=== PATIENT | female | born 1970 | race Caucasian/White ===

== ENCOUNTER 2016-04-23 14:19 | Outpatient (CLI) | payer BC, OTHER ==
[~2016-04-23] VITALS: Ht 162.6 cm; Wt 81.6 kg
[2016-04-23] MEDS ORDERED: VITA1CAP PO (14:39)
[2016-04-23] MEDS ORDERED: L.AC1CAP6 PO (14:39)
[2016-04-23] MEDS ORDERED: CALC-140 PO (14:39)
[2016-04-23] MEDS ORDERED: PSEU30TA35 PO (14:39)
[2016-04-23] MEDS ORDERED: BUDE10.2 IH (14:39)
[2016-04-23] MEDS ORDERED: GLUC-160 PO (14:39)
[2016-04-23] MEDS ORDERED: PANT40SU PO (14:39)
[2016-04-23] MEDS ORDERED: CELE50CA PO (14:39)
[2016-04-23] MEDS ORDERED: DOXY100C2 PO (14:39)
[2016-04-23 14:44] VITALS: BP 134/88
[2016-04-23 15:33] LABS: BASOPHILS % (AUTO) 0 % (0-10); EOSINOPHILS # (AUTO) 0.1 10^3/uL (0.0-0.3); EOSINOPHILS % (AUTO) 0 % (0-10); LYMPHOCYTES # (AUTO) 2.9 X 10^3 (1.0-4.0); LYMPHOCYTES % (AUTO) 21 % (12-44); MEAN CORPUSCULAR HEMOGLOBIN 26 PG (25-34); MEAN CORPUSCULAR HGB CONC 33 G/DL (32-36); MEAN CORPUSCULAR VOLUME 80 FL (80-99); MEAN PLATELET VOLUME 11.1 FL (7.4-10.4); MONOCYTES # (AUTO) 1.2 X 10^3 (0.0-1.0); MONOCYTES % (AUTO) 9 % (0-12); NEUTROPHILS # (AUTO) 9.2 X 10^3 (1.8-7.8); NEUTROPHILS % (AUTO) 69 % (42-75); PLATELET COUNT 345 10^3/uL (130-400); RED BLOOD COUNT 5.14 10^6/uL (4.35-5.85); RED CELL DISTRIBUTION WIDTH 16.3 % (10.0-14.5); WHITE BLOOD COUNT 13.3 10^3/uL (4.3-11.0)
[2016-04-23 15:53] LABS: ALANINE AMINOTRANSFERASE 31 U/L (0-55); ALBUMIN 4.2 G/DL (3.2-4.5); ANION GAP 11 MMOL/L (5-14); ASPARTATE AMINO TRANSFERASE 24 U/L (5-34); BILIRUBIN,TOTAL 0.4 MG/DL (0.1-1.0); BLOOD UREA NITROGEN 20 MG/DL (7-18); BUN/CREATININE RATIO 21; CALCIUM 9.5 MG/DL (8.5-10.1); CARBON DIOXIDE 25 MMOL/L (21-32); CHLORIDE 104 MMOL/L (98-107); CREATININE SERUM 0.97 MG/DL (0.60-1.30); GFR ESTIMATED > 60; GLUCOSE 89 MG/DL (70-105); POTASSIUM 3.6 MMOL/L (3.6-5.0); SODIUM 140 MMOL/L (135-145); TOTAL PROTEIN 7.6 G/DL (6.4-8.2)
[2016-04-29] MEDS ORDERED: SIME80TA16 PO (12:52)
[2016-04-29] MEDS ORDERED: DOCU-143 PO (12:52)
[2016-04-29] MEDS ORDERED: IBUP-1773 PO (12:52)
[2016-04-29] MEDS ORDERED: HYDR-3729 PO (12:52)
[2016-04-30] MEDS ORDERED: TRAM50TA2 PO (08:33)
== END 2016-04-23 16:00 | disposition home or self-care (01) ==
LOC: PREOP 14:19
PROVIDERS: ATTEND Obstetrics & Gynecology
DX: Z01.812 Encounter for preprocedural laboratory examination (principal); Z11.2 Encounter for screening for other bacterial diseases; D25.9 Leiomyoma of uterus, unspecified
CPT/HCPCS: 36415; 80053; 85025; 87081

== ENCOUNTER 2016-04-29 10:51 | Day surgery (SDC) | payer BC, OTHER ==
[~2016-04-29] VITALS: Ht 162.6 cm; Wt 81.6 kg
[~2016-04-29 10:51] MED LIST: BUDE10.2 IH; CALC-140 PO; CELE50CA PO; DOXY100C2 PO; GLUC-160 PO; L.AC1CAP6 PO; PANT40SU PO; PSEU30TA35 PO; VITA1CAP PO
[2016-04-29] MEDS ORDERED: NORMAL SALINE (BAXTER MINI) 0 ML IV ONE (10:52)
[2016-04-29] MEDS ORDERED: ceFAZolin 1,000 MG (ANCEF) VIAL ONE ×2 (10:52→12:44)
[2016-04-29] MEDS ORDERED: metroNIDAZOLE 500MG/100ML IVPB 100 ML ONE (10:52)
--- OUTSIDE RECORDS SUMMARY | 2016-04-29 10:54 | XMS REPORT | Continuity of Care Document ---
Author Author [facility] Organization [facility] Address Unknown Phone Unavailable Care Team Providers Care Cop Name Role Phone HENNY HOLDEN DO PCP Insurance Providers Payer Name Policy Number Subscriber Name Relationship [facility] [id number] Donna Green 18 Self / Same As Patient Self Pay Pending [facility] Apprv [id number] Donna Green 17 Self / Same As Patient Advance Directives Directive Response Recorded Date/Time Advance Directives No 04/23/16 2:31pm Health Care Power of Nitric Acid Plant Operator No 04/23/16 2:31pm Resuscitation Status Full Code 04/23/16 2:31pm Problems No problem information available. Medications Current Home Medications Medication Dose Units Route Directions Days/Qty Instructions Start Date Pseudoephedrine Hcl 30 Mg 30 Mg Oral Three Times A Day 04/23/16 Doxycycline Hyclate 100 Mg 100 Mg Oral Twice A Day 04/23/16 Celecoxib 50 Mg 50 Mg Oral Daily 04/23/16 Vitamin B Complex 1 Each 1 Each Oral Daily 04/23/16 Pantoprazole Sodium 40 Mg 40 Mg Oral Daily 04/23/16 Calcium Carbonate/Vitamin D3 1 Each 1 Each Oral Daily 04/23/16 L.acidoph & Paracasei,B.lactis 1 Each 1 Each Oral Daily 04/23/16 Glucosamine/D3/Boswellia Janine 1 Each 1 Each Oral Daily 04/23/16 Budesonide/Formoterol Fumarate 10.2 Gm 2 Puff Inhalation Twice A Day 04/23/16 Social History Social History Problem Response Recorded Date/Time Alcohol Use Occasionally Uses 04/23/2016 2:31pm Recreational Drug Use No 04/23/2016 2:31pm Recent Foreign Travel No 04/23/2016 2:29pm Recent Infectious Disease Exposure No 04/23/2016 2:29pm Sexually Transmitted Disease No 04/23/2016 2:31pm HIV/AIDS No 04/23/2016 2:31pm Smoking Status Never a Smoker 04/23/2016 2:31pm Recent Hopitalizations No 04/23/2016 2:31pm Sexually Transmitted Disease No 04/23/2016 2:31pm Query Response Start Date Stop Date Smoking Status Never a Smoker Hospital Discharge Instructions No hospital discharge instructions. Plan of Care Discharge Date 04/23/16 4:00pm Prescriptions See Medication Section Functional Status No functional status results. Allergies, Adverse Reactions, Alerts No known allergies. Immunizations No immunization records. Vital Signs Acute Vital Signs Vital Response Date/Time Pulse Rate (adult) 77 bpm (60 - 90) 04/23/2016 2:44pm Respiratory Rate 16 bpm (12 - 24) 04/23/2016 2:44pm O2 Sat by Pulse Oximetry 99 % (88 - 100) 04/23/2016 2:44pm Blood Pressure 134/88 mm Hg 04/23/2016 2:44pm Blood Pressure Mean 103 mm Hg 04/23/2016 2:44pm Pain Numeric Pain Scale 3 04/23/2016 2:44pm Height (Feet) 5 feet 04/23/2016 2:29pm Height (Inches) 4.00 inches 04/23/2016 2:29pm Height (Calculated Centimeters) 162.998920 cm 04/23/2016 2:29pm Weight (Pounds) 180 pounds 04/23/2016 2:29pm Weight (Ounces) 0.0 oz 04/23/2016 2:29pm Weight (Calculated Grams) 19673.63 gm 04/23/2016 2:29pm Weight (Calculated Kilograms) 81.845195 kilograms 04/23/2016 2:29pm Calculated BMI 30.9 04/23/2016 2:29pm Results Laboratory Results Test Name Result Units Flags Reference Collection Date/Time Result Date/ Time Comments White Blood Count 13.3 10^3/uL H 4.3-11.0 04/23/2016 2:15pm 04/23/2016 3: 35pm Red Blood Count 5.14 10^6/uL 4.35-5.85 04/23/2016 2:15pm 04/23/2016 3: 35pm Hemoglobin 13.4 G/DL 11.5-16.0 04/23/2016 2:15pm 04/23/2016 3:35pm Hematocrit 41 % 35-52 04/23/2016 2:15pm 04/23/2016 3:35pm Mean Corpuscular Volume 80 FL 80-99 04/23/2016 2:15pm 04/23/2016 3: 35pm Mean Corpuscular Hemoglobin 26 PG 25-34 04/23/2016 2:15pm 04/23/2016 3: 35pm Mean Corpuscular Hemoglobin Concent 33 G/DL 32-36 04/23/2016 2:15pm 06/2016 3:35pm Red Cell Distribution Width 16.3 % H 10.0-14.5 04/23/2016 2:15pm 2016 3:35pm Platelet Count 345 10^3/uL 130-400 04/23/2016 2:15pm 04/23/2016 3:35pm Mean Platelet Volume 11.1 FL H 7.4-10.4 04/23/2016 2:15pm 04/23/2016 3: 35pm Neutrophils (%) (Auto) 69 % 42-75 04/23/2016 2:15pm 04/23/2016 3:35pm Lymphocytes (%) (Auto) 21 % 12-44 04/23/2016 2:15pm 04/23/2016 3:35pm Monocytes (%) (Auto) 9 % 0-12 04/23/2016 2:15pm 04/23/2016 3:35pm Eosinophils (%) (Auto) 0 % 0-10 04/23/2016 2:15pm 04/23/2016 3:35pm Basophils (%) (Auto) 0 % 0-10 04/23/2016 2:15pm 04/23/2016 3:35pm Neutrophils # (Auto) 9.2 X 10^3 H 1.8-7.8 04/23/2016 2:15pm 04/23/2016 3: 35pm Lymphocytes # (Auto) 2.9 X 10^3 1.0-4.0 04/23/2016 2:15pm 04/23/2016 3: 35pm Monocytes # (Auto) 1.2 X 10^3 H 0.0-1.0 04/23/2016 2:15pm 04/23/2016 3: 35pm Eosinophils # (Auto) 0.1 10^3/uL 0.0-0.3 04/23/2016 2:15pm 04/23/2016 3 :35pm Basophils # (Auto) 0.0 10^3/uL 0.0-0.1 04/23/2016 2:15pm 04/23/2016 3: 35pm Sodium Level 140 MMOL/L 135-145 04/23/2016 2:15pm 04/23/2016 3:53pm Potassium Level 3.6 MMOL/L 3.6-5.0 04/23/2016 2:15pm 04/23/2016 3:53pm Chloride Level 104 MMOL/L 98-107 04/23/2016 2:15pm 04/23/2016 3:53pm Carbon Dioxide Level 25 MMOL/L 21-32 04/23/2016 2:15pm 04/23/2016 3: 53pm Anion Gap 11 MMOL/L 5-14 04/23/2016 2:15pm 04/23/2016 3:53pm Blood Urea Nitrogen 20 MG/DL H 7-18 04/23/2016 2:15pm 04/23/2016 3:53pm Creatinine 0.97 MG/DL 0.60-1.30 04/23/2016 2:15pm 04/23/2016 3:53pm BUN/Creatinine Ratio 21 04/23/2016 2:15pm 04/23/2016 3:53pm Estimat Glomerular Filtration Rate > 60 04/23/2016 2:15pm 2016 3:53pm GFR INTERPRETIVE DATA UNITS FOR ESTIMATED GFR (eGFR): mL/min/1.73 M2 REFERENCE RANGE FOR ESTIMATED GFR (eGFR) eGFR NORMAL eGFR >60 MODERATELY DECREASED eGFR 30-59 SEVERLY DECREASED eGFR 15-29 KIDNEY FAILURE <15 (OR DIALYSIS) Glucose Level 89 MG/DL 70-105 04/23/2016 2:15pm 04/23/2016 3:53pm Calcium Level 9.5 MG/DL 8.5-10.1 04/23/2016 2:15pm 04/23/2016 3:53pm Total Bilirubin 0.4 MG/DL 0.1-1.0 04/23/2016 2:15pm 04/23/2016 3:53pm Alkaline Phosphatase 67 U/L 40-136 04/23/2016 2:15pm 04/23/2016 3:53pm Aspartate Amino Transf (AST/SGOT) 24 U/L 5-34 04/23/2016 2:15pm 2016 3:53pm Alanine Aminotransferase (ALT/SGPT) 31 U/L 0-55 04/23/2016 2:15pm 04/23 3:53pm Total Protein 7.6 G/DL 6.4-8.2 04/23/2016 2:15pm 04/23/2016 3:53pm Albumin 4.2 G/DL 3.2-4.5 04/23/2016 2:15pm 04/23/2016 3:53pm Procedures No known history of procedures. Encounters Encounter Location Arrival/Admit Date Discharge/Depart Date Attending Provider Departed Clinic [facility] 04/23/16 2:19pm 04/23/16 4: 00pm ELLIOT PACHECO MD
--- OUTSIDE RECORDS SUMMARY | 2016-04-29 10:54 | XMS REPORT | Continuity of Care Document ---
Author Author [facility] Organization [facility] Address Unknown Phone Unavailable Care Team Providers Care Gre Instructor Name Role Phone HENNY HOLDEN DO PCP Insurance Providers Payer Name Policy Number Subscriber Name Relationship [facility] [id number] Donna Green 17 Self / Same As Patient Self Pay Pending [facility] Apprv [id number] Donna Green 17 Self / Same As Patient Advance Directives Directive Response Recorded Date/Time Advance Directives No 04/23/16 2:31pm Health Care Power of Grocery Store Associate No 04/23/16 2:31pm Resuscitation Status Full Code [...] 4.00 inches 04/23/2016 2:29pm Height (Calculated Centimeters) 162.036885 cm 04/23/2016 2:29pm Weight (Pounds) 180 pounds 04/23/2016 2:29pm Weight (Ounces) 0.0 oz 04/23/2016 2:29pm Weight (Calculated Grams) 53384.63 gm 04/23/2016 2:29pm Weight (Calculated Kilograms) 81.193396 kilograms 04/23/2016 2:29pm Calculated BMI 30.9 04/23/2016 [...] Discharge/Depart Date Attending Provider Departed Clinic [facility] 04/23/16 2:19pm 04/23/16 4: 00pm ELLIOT PACHECO MD
[2016-04-29] MEDS ORDERED: FAMOTIDINE 20MG/2ML IV (PEPCID) ONE (11:07)
[2016-04-29] MEDS ORDERED: metroNIDAZOLE 500MG/100ML IVPB 100 ML IV ONE (11:15)
[2016-04-29] MEDS ORDERED: FAMOTIDINE 20MG/2ML IV (PEPCID) IV ONE (11:15)
[2016-04-29] MEDS ORDERED: ceFAZolin 1 GM/NS 50 ML IVPB IV ONE ×2 (11:15)
[2016-04-29] MEDS: LACTATED RINGERS 1,000 ML IV PRN ×2 (11:30→16:53)
[2016-04-29] MEDS ORDERED: fentaNYL INJECTION 250 MCG/5 ML AMP ONE (11:47)
[2016-04-29] MEDS ORDERED: ROCURONIUM 50 MG/5 ML (ZEMURON) VIAL IV ONE ×2 (11:47→14:43)
[2016-04-29] MEDS ORDERED: proPOfol 200 MG/20 ML (DIPRIVAN) VIAL IV ONE (11:47)
[2016-04-29] MEDS ORDERED: MIDAZOLAM 2 MG/2 ML (VERSED) VIAL ONE (11:47)
[2016-04-29] MEDS ORDERED: LACTATED RINGERS 1,000 ML IV ONE ×2 (11:47→14:43)
[2016-04-29] MEDS ORDERED: LIDOCAINE PF 2% 10 ML (XYLOCAINE) AMP ONE (11:47)
[2016-04-29] MEDS ORDERED: SEVOFLURANE (ULTANE) 15 ML INHAL SOLN ONE ×5 (11:47→15:17)
[2016-04-29] MEDS ORDERED: ONDANSETRON 4 MG/2 ML (SDV) Z0FRAN ONE ×2 (11:47→14:33)
[2016-04-29 11:57] VITALS: BP 140/92
[2016-04-29] MEDS ORDERED: BUP/EPI 0.25% 1:200,000 (MARCAINE) 30 ML VIAL ONE (12:14)
[2016-04-29] MEDS ORDERED: LEVOFLOXACIN 750 MG/150 ML IV 150 ML IV ONE ×2 (12:41→13:00)
[2016-04-29] MEDS ORDERED: NORMAL SALINE (BAXTER MINI) 50 ML IV ONE (12:44)
--- NOTE | 2016-04-29 12:48 | Progress Note-Pre Operative ---
Pre-Operative Progress Note H&P Reviewed The H&P was reviewed, patient examined and no changes noted. Date H&P Reviewed: Apr 29, 2016 Time H&P Reviewed: 12:40 Pre-Operative Diagnosis: Uterine fibroid, pelvic pain, AUB ELLIOT PACHECO MD Apr 29, 2016 12:48
[2016-04-29] MEDS ORDERED: SIME80TA16 PO (12:52)
[2016-04-29] MEDS ORDERED: DOCU-143 PO (12:52)
[2016-04-29] MEDS ORDERED: IBUP-1773 PO (12:52)
[2016-04-29] MEDS ORDERED: HYDR-3729 PO (12:52)
--- NOTE | 2016-04-29 12:55 | Discharge Inst-Women's Service ---
Discharge Inst-Women's Serv Depart Medication/Instructions New, Converted or Re-Newed RX: RX on Chart (and transmitted) Final Diagnosis Uterine fibroid, pelvic pain, AUB Consults/Follow Up Additional Follow Up: Yes Orders/Referrals 7-[address] Huddleston Activity Activity: Activity as Tolerated (no strenuous activity, no heavy lifting > 10 lb) Driving Instructions: No Driving for 24 Hours (or while taking narcotic pain medications) NO SMOKING: NO SMOKING Nothing Inside Vagina: No Douching, No [place], No Tampons Diet Discharge Diet: No Restrictions Symptoms to Report to DrGonzalo: Bleeding Excessive, Pain Increased, Fever Over 101 Degrees F, Pain/Pressure in Chest, Vaginal Bleeding Increase, Dizziness/Fainting , Nausea/Vomiting, Shortness of Breath For Any Problems or Questions: Contact Your Physician Skin/Wound Care Infection Signs and Symptoms: Increased Redness, Foul Odor of Wound, Increased Drainage Operative Area Clean and Dry: Keep Incision Clean/Dry Stitches/[place]/Dermabond: Dermabond, Care of Stitches Bathing Instructions: ELLIOT Uribe MD Apr 29, 2016 12:55
[2016-04-29] MEDS ORDERED: morphine INJ 10 MG/ML 1ML (SYR OR VIAL) ONE ×2 (14:32→15:34)
[2016-04-29] MEDS ORDERED: HYDROmorphone (DILAUDID) 2 MG/ML VIAL ONE (14:32)
[2016-04-29] MEDS ORDERED: KETOROLAC 30 MG/ML VIAL ONE ×2 (14:33→15:11)
[2016-04-29] MEDS ORDERED: GLYCOPYRROLATE 0.2 MG/ML (ROBINUL) 2 ML VIAL ONE (15:09)
[2016-04-29] MEDS ORDERED: NEOSTIGMINE (BLOXIVERZ ) 1 MG/1ML 10 ML VIAL ONE (15:09)
[2016-04-29] MEDS: KETOROLAC 30 MG/ML VIAL IV PRN ×2 (15:15→21:16)
--- NOTE | 2016-04-29 15:15 | Progress Note-Post Operative ---
Post-Operative Progess Note Over [employer]uler [employer] Merary Prescott APRN Pre-Operative Diagnosis Uterine fibroid, pelvic pain, AUB Post-Operative Diagnosis Same plus multiple large uterine fibroids, left ovarian cyst Post-Op Procedure Note Date of Procedure: Apr 29, 2016 Name of Procedure: Robotic assisted total laparoscopic hysterectomy, bilateral salpingectomy, left oophorectomy Procedure Note/Findings See dictated note Anesthesia Type General Estimated blood loss (mL): 100 mL Packing: None Specimen(s) collected Uterus/cervix, bilateral tubes, left ovary, transected fibroid ELLIOT PACHECO MD Apr 29, 2016 15:15
--- NOTE | 2016-04-29 15:43 | OB/GYN Operative Report ---
Operative Report Date of Procedure: April 29, 2016 Preoperative Diagnosis: 45 y/o G0 with symptomatic uterine fibroids, abnormal uterine bleeding, pelvic pain Postoperative Diagnosis: Same plus left ovarian cyst (thought c/w hemorrhagic corpus luteum) Procedure: Robotic assisted total laparoscopic hysterectomy with bilateral salpingectomy and left oophorectomy with collection of pelvic washings Surgeon: Elliot Huddleston MD Assistants: Merary Prescott APRN who was vital for the retraction of important neurovascular structures Anesthesia: General endotracheal Estimated blood loss: Minimal Specimens: Uterus/cervix, bilateral tubes, left ovary to pathology; pelvic washings for cytology Indications for Procedure: This is a 45 y/o G0 with large ([id number]) uterine fibroid and several smaller fibroids who presented with pelvic pain and abnormal uterine bleeding. Endometrial biopsy was obtained and was negative for hyperplasia or malignancy. She was certified alcohol counselor on options and elected to undergo definitive therapy via hysterectomy. Findings: Enlarged uterus with large right cervical fibroid as well as large fundal posterior fibroid. Right ovary normal in appearance. Left ovary with hemorrhagic cyst consistent with hemorrhagic corpus luteum. Moderate adhesions from left colon to pelvic sidewall. Normal appearing liver, bowel, stomach, bladder. Procedure: The patient was taken to the operating room where sequential compression devices were placed prior to induction of anesthesia. Intravenous fluids were running. General endotracheal anesthesia was obtained without difficulty. She was then repositioned in the dorsal lithotomy position with the use of Yellofin stirrups. She was prepped and draped in the typical sterile fashion. A hernández catheter was placed in the bladder. A weighted speculum was placed in the vagina. The anterior lip of the cervix was grasped with a single tooth tenaculum. The uterus was sounded to 12cm. The VCare uterine manipulator ( medium in size) was then placed in the uterus to allow for manipulation (after being secured with an 0-Vicryl suture to the anterior lip of the cervix), and the occluder balloon was insufflated. Gloves were changed and the attention was turned to the abdomen. 0.25% marcaine was injected into the skin in the umbilicus. A small stab incision was made to accomodate the Veress needle. The Veress needle was advanced into the peritoneal cavity. The opening pressure was 3mm Hg. CO2 gas was then utilized to insufflate the abdomen to a pressure of 15 mmHg. The Veress needle was then removed. Marcaine was injected into the skin 5cm above the umbilicus. The knife was utilized to make an 8mm incision. The 8mm robotic trochar was advanced into the peritoneal cavity through this incision. This was confirmed with the camera. An intra-abdominal survey revealed lack of injury to the underlying structures. 0.25% marcaine was then injected on the left 10cm lateral and 2-3 cm inferior to the original incision for an 8 mm port site. We injected on the right side as well, for an 8 mm port site 10cm lateral and 2- 3cm inferior to the original incision. All ports were then placed under direct visualization. The patient was then placed in steep Trendelenburg position. The robot was then brought in from the patient's left side for side-docking, and docking was accomplished without difficulty. I then started the robotic portion of the procedure, with the fenestrated biopolar device in the left arm and the monopolar scissors in the right. Pelvic washings were obtained by my junior administrative assistant due to the noted ovarian cyst. I performed a salpingectomy on the right fallopian tube, transecting just below the tube in the mesosalpinx in a distal to proximal direction with the monopolar bhumika, leaving the proximal portion attached to the uterus. The right utero-ovarian ligament was then isolated, coagulated and transected. I continued this dissection in an anterior direction, opening the broad ligament and then dissecting the anterior peritoneum off the lower uterine segment and creating a bladder flap. There was a large cervical fibroid on the right and the peritoneum was dissected off this but it was left mostly intact. I was able to isolate the uterine artery just above the fibroid and it was coagulated and transected. I did note the ureter well below this with peristalsis noted. I then moved to the left side after the uterus was moved laterally to the left. The round ligament was coagulated and transected and the retroperitoneal space was opened. The ureter was identified deep in this space. The infundibulopelvic ligament was then isolated, coagulated and transected (as I had decided to perform oophorectomy due to a hemorrhagic cyst noted in the left ovary). I continued the dissection posteriorly, skeletonizing the uterosacral ligament and reflecting the peritoneum posteriorly. The dissection was then continued in an anterior direction, opening the broad ligament and dissecting the anterior peritoneum off the lower uterine segment and completing the bladder flap. I started the colpotomy anteriorly. The green cervical cap was noted. The colpotomy was continued in a counter-clockwise direction and completed just below the cervical fibroid, and the specimen was completed transected. I then performed a myomectomy to allow for delivery of the specimens, removing the fibroid from the uterus and delivering the uterus through the vagina. The fibroid was quite calcified and unable to deliver through the vagina, and thus I scrubbed back into the case and grasped the fibroid with a single tooth tenaculum under direct visualization. I then utilized a scalpel to core out the fibroid and deliver it in small portions through the vagina. The vaginal cuff was then closed with 2-0 V-loc, starting with the right apex, incorporating the uterosacral ligament. The suture was not long enough to close the entire length of the cuff, thus another was utilized starting at the right apex, incorporating the uterosacral ligament. Following this, the vaginal cuff was noted to be hemostatic. All pedicles were inspected and were noted to be hemostatic. A low pressure test confirmed adequate hemostasis. Following this, one final check of the abdomen revealed adequate hemostasis and the robot was undocked. The gas was then allowed to escape the abdomen and all instruments were removed from the abdomen. The skin was closed using 4-0 Monocryl in a subcuticular stitch. Following the case, instrument counts were correct. The patient was repositioned in the supine position and awakened from general anesthesia without difficulty. She was taken to recovery in stable condition. She will be observed overnight. Complications: None Disposition: Recovery, stable ELLIOT HUDDLESTON MD Apr 29, 2016 15:43
[2016-04-29] MEDS ORDERED: ONDANSETRON 4 MG/2 ML (SDV) Z0FRAN IV PRN (15:45)
[2016-04-29] MEDS: morphine INJ 10 MG/ML 1ML (SYR OR VIAL) IV PRN ×2 (15:56→16:00)
[2016-04-29 16:32] VITALS: BP 153/87
[2016-04-29] MEDS ORDERED: LACTATED RINGERS 1,000 ML IV SCH (16:39)
[2016-04-29] MEDS ORDERED: SIMETHICONE 80 MG (MYLICON) CHEW PO PRN (16:45)
[2016-04-29] MEDS ORDERED: HYDROcodone/APAP 7.5 MG/325 MG (LORTAB, LORCET PLUS) TABLET PO PRN (16:45)
[2016-04-29] MEDS ORDERED: ANTACID SUSP 30 ML UDC (MYLANTA) PO PRN (16:45)
[2016-04-29] MEDS ORDERED: ZOLPIDEM 5 MG (AMBIEN) TAB PO PRN (16:45)
[2016-04-29] MEDS ORDERED: DOCUSATE SODIUM 100 MG (COLACE) CAP PO PRN (16:45)
[2016-04-29] MEDS: ONDANSETRON 4 MG/2 ML (SDV) Z0FRAN IV PRN ×2 (17:19→21:16)
[2016-04-29 20:30] VITALS: BP 156/96
[2016-04-29 21:20] VITALS: BP 159/85
[2016-04-29 22:53] VITALS: BP 143/80
[2016-04-29] MEDS ORDERED: PROMETHAZINE INJ 25 MG/ML (PHENERGAN) AMP IVP PRN (23:15)
[2016-04-29] MEDS ORDERED: morphine INJ 4 MG/ML 1 ML (VIAL/SYRINGE) IVP PRN (23:15)
[2016-04-30] MEDS ORDERED: KETOROLAC 30 MG/ML VIAL ONE (03:02)
[2016-04-30] MEDS: KETOROLAC 30 MG/ML VIAL IV PRN (03:13)
[2016-04-30 03:14] VITALS: BP 134/75
[2016-04-30] MEDS ORDERED: IBUPROFEN 600 MG (MOTRIN) TAB PO PRN (08:00)
[2016-04-30] MEDS ORDERED: TRAM50TA2 PO (08:33)
[2016-04-30 08:40] VITALS: BP 121/72
[2016-05-01 06:38] LABS: HIV 1/2 INTERP See Footnote; HIV AG AB SCREEN Non-Reactive (Non-Reactive)
== END 2016-04-30 09:35 | disposition home or self-care (01) ==
LOC: SDC 10:51 → WS 16:32 → SDC 04-30 09:35
PROVIDERS: ATTEND Obstetrics & Gynecology
DX: D25.2 Subserosal leiomyoma of uterus (principal); D25.1 Intramural leiomyoma of uterus; N83.12 Corpus luteum cyst of left ovary
CPT/HCPCS: 36415; 84703; 86703; 86780; 86803; 86850; 86900; 86901; 87340; 94664; 96361; 96375; 96376

== ENCOUNTER → 2017-09-24 | Outpatient (CLI) | payer BC, OTHER ==
[~2017-09-24] MED LIST changes: +DOCU-143 PO; +HYDR-3729 PO; +IBUP-1773 PO; +SIME80TA16 PO; +TRAM50TA2 PO
[2017-09-24 16:53] LABS: BASOPHILS # (AUTO) 0.1 10^3/uL (0.0-0.1); BASOPHILS % (AUTO) 0 % (0-10); EOSINOPHILS # (AUTO) 0.1 10^3/uL (0.0-0.3); EOSINOPHILS % (AUTO) 1 % (0-10); HEMATOCRIT 41 % (35-52); HEMOGLOBIN 14.1 G/DL (11.5-16.0); LYMPHOCYTES # (AUTO) 2.8 X 10^3 (1.0-4.0); LYMPHOCYTES % (AUTO) 24 % (12-44); MEAN CORPUSCULAR HEMOGLOBIN 29 PG (25-34); MEAN CORPUSCULAR HGB CONC 35 G/DL (32-36); MEAN CORPUSCULAR VOLUME 85 FL (80-99); MEAN PLATELET VOLUME 11.2 FL (7.4-10.4); MONOCYTES # (AUTO) 0.9 X 10^3 (0.0-1.0); MONOCYTES % (AUTO) 8 % (0-12); NEUTROPHILS # (AUTO) 8.1 X 10^3 (1.8-7.8); NEUTROPHILS % (AUTO) 67 % (42-75); PLATELET COUNT 273 10^3/uL (130-400); RED BLOOD COUNT 4.79 10^6/uL (4.35-5.85); RED CELL DISTRIBUTION WIDTH 14.1 % (10.0-14.5)
--- NOTE | 2017-09-24 16:55 | Diagnostic Imaging Report ---
EXAMINATION: Bilateral hands. INDICATION: Rheumatoid arthritis. Three views of each hand were obtained. There are no prior studies available for comparison. FINDINGS: There is no fracture, dislocation, or acute bony abnormality evident. The osseous structures are well mineralized. There is moderate degenerative disease of the interphalangeal joints of both thumbs. There is also mild degenerative disease of the DIP joints of each digit of each hand. No other significant arthritic changes are evident. The soft tissues are unremarkable. IMPRESSION: 1. There is no evidence for an acute bony abnormality. 2. There are moderate degenerative changes involving the interphalangeal joints of each thumb and mild degenerative disease of the DIP joints of each digit. Dictated by: Dictated on workstation # [id number]
[2017-09-24 17:10] LABS: ALANINE AMINOTRANSFERASE 19 U/L (0-55); ALBUMIN 4.1 GM/DL (3.2-4.5); ALKALINE PHOSPHATASE 57 U/L (40-136); BILIRUBIN,TOTAL 0.4 MG/DL (0.1-1.0); BUN/CREATININE RATIO 22; CALCIUM 9.2 MG/DL (8.5-10.1); CARBON DIOXIDE 21 MMOL/L (21-32); CHLORIDE 108 MMOL/L (98-107); CREATININE SERUM 0.78 MG/DL (0.60-1.30); GFR ESTIMATED > 60; GLUCOSE 82 MG/DL (70-105); POTASSIUM 3.8 MMOL/L (3.6-5.0); SODIUM 138 MMOL/L (135-145); TOTAL PROTEIN 7.7 GM/DL (6.4-8.2)
[2017-09-24 17:16] LABS: ERYTHROCYTE SEDIMENTATION RATE 17 MM/HR (0-20)
--- NOTE | 2017-09-24 17:34 | Diagnostic Imaging Report ---
EXAMINATION: Bilateral feet. INDICATION: Rheumatoid arthritis, foot pain. Three views of each foot were obtained. There are no prior studies available for comparison. FINDINGS: There is no fracture, dislocation, or acute bony abnormality evident. The osseous structures are well mineralized. There are prominent calcaneal spurs bilaterally. There do not appear to be any significant arthritic changes involving either foot. The soft tissues are unremarkable. IMPRESSION: 1. There is no evidence for an acute bony abnormality. 2. There are prominent calcaneal spurs bilaterally. There do not appear to be any significant arthritic changes involving either foot, however. Dictated by: Dictated on workstation # [id number]
== END ==
LOC: RAD 15:44
PROVIDERS: ATTEND Internal Medicine Rheumatology
DX: M05.741 Rheumatoid arthritis with rheumatoid factor of right hand without organ or systems involvement (principal); M05.742 Rheumatoid arthritis with rheumatoid factor of left hand without organ or systems involvement; M77.32 Calcaneal spur, left foot; M77.31 Calcaneal spur, right foot; M06.871 Other specified rheumatoid arthritis, right ankle and foot; M06.872 Other specified rheumatoid arthritis, left ankle and foot; M19.041 Primary osteoarthritis, right hand; M19.042 Primary osteoarthritis, left hand; Z79.899 Other long term (current) drug therapy
CPT/HCPCS: 36415; 80053; 85025; 85652; 86141; 86200; 86430; 86480; 86705; 86706; 87340; 87522

== ENCOUNTER → 2019-11-03 | Outpatient (CLI) | payer BC, OTHER ==
[~2019-11-03] MED LIST changes: -TRAM50TA2 PO; +TRM50T PO
--- NOTE | 2019-11-03 10:16 | Diagnostic Imaging Report ---
Clinical indication: Patient is having neck pain. Exam: MRI of the cervical spine performed without IV contrast. Sequences include sagittal T1, sagittal T2, sagittal T2 fat-sat, and axial T2. Comparison: None. Findings: There is no acute cervical spine fracture or dislocation. There is straightening of the cervical spine posture. There is no abnormal cervical vertebral body signal. Limited visualization of posterior fossa is unremarkable. Cervical spinal cord shows no significant abnormality. There are mild hypertrophic spurs involving the mid to lower cervical spine. There is no significant paraspinal soft tissue abnormality. C1-C2: There is no significant central canal narrowing. C2-C3: Unremarkable. C3-C4: There is a small anterior disk bulge. There is a subtle posterior disk bulge. There is no significant central spinal canal or neural foramen narrowing.. C4-C5: There is mild diffuse disk bulge. There is no significant central spinal canal or neural foramen narrowing. C5-C6: There is a diffuse disk bulge and moderate loss of disk space height and superimposed broad posterior disk spurs and small bilateral uncinate spurs. There is mild to moderate central canal stenosis. There is mild left neural foramen narrowing and no significant right neural foramen narrowing. C6-C7: There is a small central posterior disk herniation which causes mild to moderate central canal narrowing. There is no significant neural foramen narrowing. C7-T1: There is no significant central spinal canal or neural foramen narrowing. IMPRESSION: 1: There is multilevel cervical spine degenerative disease with diffuse disk bulges and disk herniations, as described above. 2: There is mild to moderate central canal stenosis involving the C5-C6 and C6-C7 levels due to disk disease. Dictated by: Dictated on workstation # [id number]
== END ==
LOC: RAD 09:30
PROVIDERS: ATTEND Nurse Practitioner Community Health
DX: M50.11 Cervical disc disorder with radiculopathy, high cervical region (principal); M48.02 Spinal stenosis, cervical region; M47.812 Spondylosis without myelopathy or radiculopathy, cervical region
CPT/HCPCS: 72141

== ENCOUNTER 2020-08-10 05:29 | Outpatient (RCR) | payer BC ==
[~2020-08-10] VITALS: Ht 162.6 cm; Wt 88.0 kg
[~2020-08-10 05:29] MED LIST changes: +CELE-63 PO; +ESCI-2 PO; +GABA300S2 PO; +PANT20TA18 PO; +PS30T PO; -PSEU30TA35 PO; +RT-ALBUINH IH
== END 2020-08-10 09:45 | disposition home or self-care (01) ==
LOC: PREOP 05:29
PROVIDERS: ATTEND Surgery
DX: Z01.812 Encounter for preprocedural laboratory examination (principal); K21.9 Gastro-esophageal reflux disease without esophagitis; Z20.822 Contact with and (suspected) exposure to COVID-19
CPT/HCPCS: 87635

== ENCOUNTER 2020-08-14 06:43 | Day surgery (SDC) | payer BC ==
[~2020-08-14] VITALS: Ht 162.6 cm; Wt 88.0 kg
[2020-08-14] MEDS ORDERED: LACTATED RINGERS 1,000 ML IV ONE (06:45)
[2020-08-14] MEDS ORDERED: LACTATED RINGERS 1,000 ML IV STA (07:04)
[2020-08-14] MEDS ORDERED: PROPOFOL INJECTION 50 ML IV ONE ×2 (07:14→08:14)
[2020-08-14] MEDS ORDERED: MIDAZOLAM 2 MG/2 ML (VERSED) VIAL ONE (07:14)
[2020-08-14] MEDS ORDERED: HURRICAINE EXT TUBE (BENZOCAINE) XX PRN (07:15)
[2020-08-14 07:20] VITALS: BP 137/91
--- NOTE | 2020-08-14 08:06 | Progress Note-Pre Operative ---
Pre-Operative Progress Note H&P Reviewed The H&P was reviewed, patient examined and no changes noted. Time Seen by Provider: 07:58 Date H&P Reviewed: Aug 14, 2020 Time H&P Reviewed: 07:58 Pre-Operative Diagnosis: GERD, Screening Colon CHUY ARECHIGA DO Aug 14, 2020 08:06
[2020-08-14 08:45] VITALS: BP 133/78
[2020-08-14 08:50] VITALS: BP 134/81
--- NOTE | 2020-08-14 08:50 | Progress Note-Post Operative ---
Post-Operative Progess Note Surgeon (s)/[employer] Rug Setter (s) Surgeon CHUY ARECHIGA DO [employer] Rug [employer]ter: JOSE YadavII Pre-Operative Diagnosis GERD, Screening Colon Post-Operative Diagnosis Gastritis Gastric Polyp Esophagitis, ??small sliding HH Cecal masses diverticula int hemorrhoids Procedure & Operative Findings Date of Procedure 08/14/20 Procedure Performed/Findings EGD with bx EGD with polyp removal by hot bx Colon with hot bx Anesthesia Type IV sedation by ELECTRICAL SUBCONTRACTOR Estimated Blood Loss Estimated blood loss (mL): scant Specimens/Packing Specimens Removed antral bx GE jxn bx Gastric polyp x 2 Cecal bx CHUY ARECHIGA DO Aug 14, 2020 08:49
--- NOTE | 2020-08-14 08:51 | Endoscopy Discharge Instruct ---
Endo Procedure/Findings Findings 1.: Polyp (Gastric), Gastritis 2.: Hiatal Hernia (??small sliding) 3.: Other Findings (Cecal mass) 4.: Diverticulosis, Internal Hemorrhoids Discharge Instructions - Activity: You might feel a little sleepy until tomorrow. This is due to the medicine you received to relax you. Until tomorrow, you should: NOT drive a car, operate machinery or power tools. NOT drink any alcoholic beverages. NOT make any important decisions or sign importortant papers. Do not return to work until tomorrow, unless otherwise instructed. Resume previous activities tomorrow. Diet: Start by taking liquids. If you tolerate liquids, advance to solid food. 1.: Colonscopy in 10 years 2.: EGD in 3 years Notify Physician - If you experience excessive bleeding, unusual abdominal pain, fever, or chest pain, contact your doctor immediately. CHUY ARECHIGA DO Aug 14, 2020 08:51
[2020-08-14 08:54] VITALS: BP 139/80
[2020-08-14 08:55] VITALS: BP 155/82
[2020-08-14 09:23] VITALS: BP 160/97
--- NOTE | 2020-08-14 12:29 | Anesthesia-General Post-Op ---
General Patient Condition Mental Status/LOC: Same as Preop Cardiovascular: Satisfactory Nausea/Vomiting: Absent Respiratory: Satisfactory Pain: Controlled Complications: Absent Post Op Complications Complications None Follow Up Care/Instructions Patient Instructions None needed. Anesthesia/Patient Condition Patient Condition Patient is doing well, no complaints, stable vital signs, no apparent adverse anesthesia problems. No complications reported per nursing. TERRIE NOBLE CRNA Aug 14, 2020 12:28
--- NOTE | 2020-08-15 14:03 | OPERATIVE REPORT ---
DATE OF SERVICE: 08/14/2020 PREOPERATIVE DIAGNOSES: Gastroesophageal reflux disease and screening colonoscopy. POSTOPERATIVE DIAGNOSES: Gastritis, esophagitis, gastric polyp, colon polyps, diverticula, internal hemorrhoids. PROCEDURES: 1. EGD with biopsy. 2. EGD with polypectomy by hot biopsy. 3. Colonoscopy with hot biopsy. SURGEON: Pravin Bhatia DO [employer] PROGRAM DIRECTOR: Poncho Paiz, MS3. ANESTHESIA: IV sedation by the UTILITY TECH. SPECIMEN: Antral biopsy, three fundal polyps, biopsy of the GE junction and a cecal mass biopsy. BLOOD LOSS: Scant. FLUIDS: Per anesthesia. POSTOPERATIVE CONDITION: Stable. INDICATION FOR PROCEDURE: The patient is a 49-year-old female who needs a screening colonoscopy. She has a history of GERD and needed an EGD as well. FINDINGS: The patient had gastritis, esophagitis and gastric polyps. In the colon, she had some what looked like cecal mass, possibly just some lymphadenopathy. She also had diverticula and internal hemorrhoids. PROCEDURE NOTE: After informed consent was obtained, the patient was brought to the endoscopy suite, placed in bed in left lateral decubitus position. She was administered IV sedation by the UTILITY TECH. We started with the EGD, placing scope down the mouth through the esophagus into the stomach. She had some mild changes at the GE junction. A picture was taken, pushed into the duodenum. Duodenum looked fine. Pulled back and did a biopsy of the antrum. Retroflexed the scope, saw hiatal hernia and then saw couple of polyps. I elected to remove these polyps with hot biopsy, removed them and then did two biopsies of the GE junction. Suctioned all the air out of the stomach and then pulled the scope up the esophagus and out the mouth. Switched camera, switched gloves, went down below, started the colonoscopy. Pushed all the way in about 150 cm, able to get to the cecum. In the cecum, there were little white dots all over, kind of little almost masses or polyps, all over the cecum, took a picture of these, noted the opening to the appendiceal orifice, took a picture of this and then elected to do a hot biopsy of these polyps or masses in the cecum, then slowly withdrew the scope insufflating to look circumferentially at the enriquez, looking the cecum, up the ascending colon to the hepatic flexure, then down the transverse colon where I saw couple small diverticula and then into the splenic flexure into the descending colon and sigmoid, again saw a couple of small diverticula and then continued down into the sigmoid and finally into the rectum, retroflexed in rectal vault, saw some internal hemorrhoids, took a picture of this and then removed the scope. The patient tolerated the procedure. She was recovered in the endoscopy suite. Job ID: [id number] DocumentID: [id number] Dictated Date: 08/15/2020 10:24:42 Campus Executive Director Date: 08/15/2020 14:01:58 Dictated By: DO DARWIN BALDERAS
== END 2020-08-14 09:24 | disposition home or self-care (01) ==
LOC: ENDO 06:43
PROVIDERS: ATTEND Surgery
DX: Z12.11 Encounter for screening for malignant neoplasm of colon (principal); K63.5 Polyp of colon; K57.30 Diverticulosis of large intestine without perforation or abscess without bleeding; K64.8 Other hemorrhoids; K31.7 Polyp of stomach and duodenum; K21.00 Gastro-esophageal reflux disease with esophagitis, without bleeding; K29.70 Gastritis, unspecified, without bleeding; J45.909 Unspecified asthma, uncomplicated; K21.9 Gastro-esophageal reflux disease without esophagitis; Z79.51 Long term (current) use of inhaled steroids; Z79.899 Other long term (current) drug therapy; Z88.1 Allergy status to other antibiotic agents; Z90.710 Acquired absence of both cervix and uterus; Z80.9 Family history of malignant neoplasm, unspecified
CPT/HCPCS: 88305

== ENCOUNTER → 2020-12-07 | Outpatient (CLI) | payer BC, OTHER ==
--- NOTE | 2020-12-07 13:20 | Diagnostic Imaging Report ---
Indication: Routine screening. Comparison is made with prior mammogram 01/15/2016 and 08/16/2014. 2-D and 3-D bilateral screening mammography was performed with CAD. Both breasts are heterogeneously dense, limiting the sensitivity of mammography. The parenchymal pattern is stable. No mass or malignant-appearing microcalcifications are seen. Axillae are unremarkable. IMPRESSION: BI-RADS Category 1 No mammographic features suspicious for malignancy are identified. ACR BI-RADS Category 1: Negative. Result letter will be mailed to the patient. Note: At least 10% of breast cancer is not imaged by mammography. Dictated by: Dictated on workstation # [id number]
== END ==
LOC: RAD 10:15
PROVIDERS: ATTEND Nurse Practitioner
DX: Z12.31 Encounter for screening mammogram for malignant neoplasm of breast (principal)
CPT/HCPCS: 77063; 77067

== ENCOUNTER → 2021-04-10 | Outpatient (CLI) | payer BC, OTHER ==
[~2021-04-10] MED LIST changes: -DOXY100C2 PO; +DOXY100C5 PO
--- NOTE | 2021-04-10 10:20 | Diagnostic Imaging Report ---
Indication: Chronic back pain. I have no relevant comparison. Multiple sequence noncontrasted thoracic spinal MRI performed. Thoracic spinal cord has a normal volume and normal morphology and normal signal intensity. CSF circumscribes the cord at each vertebral body and disc space level. There is no substantial canal stenosis. Marrow signal abnormality in the 5th thoracic vertebral body eccentric to the right extends to the base of the pedicle, T2 hyperintense and mixed and intensity on T1 pulse sequences this is likely but inconclusively an incidental hemangioma measuring 13 mm long axis with no adjacent marrow edema, no suspicious-appearing marrow signal abnormality. Ligamentous structures intact. The neural foramina bilaterally widely patent throughout. The facet relationships are normal. No paravertebral mass, hemorrhage or fluid collection. Impression: Normal spinal cord findings most consistent with incidental hemangioma at T5. No marrow edema, fracture or malalignment or acute appearing bony pathology. Widely patent canal and neural foramina. Dictated by: Dictated on workstation # [id number]
--- NOTE | 2021-04-10 10:43 | Diagnostic Imaging Report ---
INDICATION: Postmenopausal screening COMPARISON: 02/16/2010 FINDINGS: AP Spine L1-L4: [BMD (g/cm2): 1.161] [T-Score: -0.3] [Z-Score: -0.5] [BMD Previous: 1.183] [BMD % Change: -1.9] LT Hip Neck: [BMD (g/cm2): 0.793] [T-Score: -1.8] [Z-Score: -1.3] LT Hip Total: [BMD (g/cm2):0.955] [T-Score:-0.4] [Z-Score: -0.4] [BMD Previous: 0.981] [BMD % Change: -2.7] RT Hip Neck: [BMD (g/cm2):0.803] [T-Score:-1.7] [Z-Score:-1.3] RT Hip Total: [BMD (g/cm2):0.925] [T-score:-0.7] [Z-Score:-0.6] [BMD Previous:0.970] [BMD % Change:-4.6] *Indicates significant change from prior examination based on 95% confidence level. World Health Organization criteria for BMD interpretation classify patients as Normal (T-score at or above -1.0), Osteopenic (T-score between -1.0 and -2.5) or Osteoporotic (T-score at or below -2.5). LIMITATIONS AND MODIFICATION: None. FRACTURE RISK (FRAX SCORE): The ten year probability of (%): Major Osteoporotic Fracture: [5.3] Hip Fracture: [0.5] IMPRESSION: 1. Osteopenia (Low bone mass). 2. No significant change in bone mineral density since prior examination. 3. See below National Osteoporosis Foundation guidelines on when to potentially initiate pharmacologic therapy. Based on the National Osteoporosis Foundation Guidelines, pharmacologic treatment should be initiated in any of the following, unless clinical conditions suggest otherwise: * Any patient with prior fragility fracture of the hip or vertebrae. A spine fracture indicates 5X risk for subsequent spine fracture and 2X risk for subsequent hip fracture. * Osteoporosis (T-score <-2.5). * Postmenopausal women and men age 50 and older with low bone mass/osteopenia (T-score between -1.0 and -2.5) by DXA and 10-year major osteoporotic fracture greater than 20% or a 10-year probability of hip fracture greater than 3%. These fracture risks are supplied above in the FRAX score, if applicable. * Clinician judgement and/or patient preferences may indicate treatment for people with 10-year fracture probabilities above or below these levels. Dictated by: Dictated on workstation # [id number]
== END ==
LOC: RAD 09:15
PROVIDERS: ATTEND Nurse Practitioner
DX: M85.80 Other specified disorders of bone density and structure, unspecified site (principal); Z78.0 Asymptomatic menopausal state
CPT/HCPCS: 72146; 77080